=== PATIENT | male | born 1950 | race Caucasian/White ===

== ENCOUNTER → 2017-12-29 | Outpatient (CLI) | payer OTHER, MEDICARE ==
--- NOTE | 2017-12-29 12:59 | RAD ---
Examination: Chest, PA and lateral views History: Wheezing Findings: Moderate cardiomegaly. Infiltrate left lower lung with left pleural effusion. Pulmonary vol umes are reduced. There may be a diffuse infiltrate in the right base, this is equivocal. There are s urgical clips in the soft tissues of the left upper arm. Impression: Cardiomegaly with left lower lobe infiltrate and pleural fluid. Reported By:
== END | disposition home or self-care (01) | DRG 204 ==
LOC: RAD 12:29
PROVIDERS: ATTEND Internal Medicine
DX: R05 Cough (principal); J06.9 Acute upper respiratory infection, unspecified
CPT/HCPCS: 36415; 71046; 87040

== ENCOUNTER → 2018-04-02 | Outpatient (CLI) | payer OTHER, MEDICARE ==
--- NOTE | 2018-04-02 13:45 | CT ---
CT OF THE ABDOMEN WITHOUT CONTRAST HISTORY: Kidney pain. Comparison: None Technique: Non contrast axial images of the abdomen were obtained. Dose reduction techniques including Automate d Exposure Control (AEC) and adjustment of mA and kV were utlized. Findings: The heart is normal in size. There is no pericardial effusion. Bilateral moderate-sized pleural effu sions. Please note the sensitivity for focal lesion detection within the solid abdominal viscera is diminish ed without the use of IV contrast. Liver and spleen are normal in size, and contour. No focal lesions. No ductal dilitation. Gallbladder absent. Inflammation in the region the head of pancreas as well as the proximal duodenum. No definit e fluid collections. Adrenal glands are normal. 5 cm proximal right renal stone on series 3, image 58 . No evidence of obstruction or hydronephrosis. No bowel obstruction or inflammation of the visualized bowel. No abnormal appearing mesenteric or re troperitoneal lymph nodes. No free fluid or fluid collections. No aggressive osseous lesions. IMPRESSION: 1. Findings most consistent with acute pancreatitis. Correlate with symptoms and lipase levels. 2. Proximal right ureteral stone measuring 5 mm without evidence of obstruction. 3. Moderate-sized bilateral pleural effusions. Reported By:
== END ==
LOC: RAD 13:01
PROVIDERS: ATTEND Internal Medicine
DX: N28.89 Other specified disorders of kidney and ureter (principal)
CPT/HCPCS: 74150